=== PATIENT | male | born 1995 | race Caucasian/White ===

== ENCOUNTER 2016-09-18 00:41 | Emergency (ER) | payer BC ==
--- NOTE | 2016-09-18 04:02 | ED ORDER SUMMARY ---
..... Patient: ALANNA CESAR OrderSheet [facility] VisitID: [id number] [address] [place] [address] 21y, M Registration Date/Time: 09/18/2016 ORDER SHEET Weight: 102.0 kg (stated) Allergies: None GENERAL ORDERS: MEDICATION ORDERS: Adacel IM 0.5 mL (NOW) (02:19 09/18/2016 RMarsden R.N. per protocol) (2:21 RMarsden R.N.) Keflex PO 500 mg (NOW) (03:58 09/18/2016 Margarita GONZALEZ) (4:16 RMarsden R.N.) IV FLUIDS: ORDER SHEET NOTES: [Electronically signed by Jessica Phelan R.N. (05:15 09/18/2016)] [Electronically signed by Ar Peres MD (12:48 09/20/2016)] [Electronically locked/signed by Jessica Phelan R.N. (05:15 09/18/2016)]
--- NOTE | 2016-09-18 04:02 | ED NURSING NOTES ---
Clinical Report - Nurses [facility] [address] [place] [address] 09/18/2016 0:45 Patient: ALANNA CESAR TRIAGE Triage time 0050. Acuity: LEVEL 4. Chief Complaint: INJURY TO THE RIGHT GREAT TOE. 00:59. Alert. No acute distress. SEPSIS SCREEN: Sepsis Screen. Negative (no infection suspected/documented). DAIANA COMA SCORE: Daiana Coma Scale: 15- eyes open spontaneously (4); best verbal response- oriented x 4 (5); best motor response- obeys commands (6). --01:39 Jessica Phelan R.N. 00:52 09/18/16. BP: 137/88. HR: 86. RR: 15. O2 saturation: 96%. Temp: 98.5 F. Pain level now: 05/03. --01:39 Jessica Phelan R.N. Weight: 102 kg stated. Height/Length: 72 inches Per Patient. BMI: 30.5. --00:49 Jessica Phelan R.N. Medications None. --04:19 Jessica Phelan R.N. Allergies None. --04:19 Jessica Phelan R.N. History Arrived by private vehicle. Historian: patient. This occurred (around midnight). He sustained a laceration. ( Patient states, "I was carrying the laundry in my room and tripped on the bedpost. It didn't hurt after a minute but I couldn't get it to stop bleeding."). 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 PAST MEDICAL HX: Tetanus status: unknown. Immunizations: up-to-date. SOCIAL HX: Never smoker. Occasional alcohol use. No drug use. FALL RISK ASSESSMENT: Fall risk assessment completed. No fall risk identified. NUTRITIONAL RISK ASSESSMENT: The nutritional risk assessment revealed no deficiencies. FUNCTIONAL ASSESSMENT: Functional assessment: no impairments noted. LEARNING NEEDS ASSESSMENT: The learning needs assessment revealed no barriers. SKIN INTEGRITY ASSESSMENT: Skin integrity risk assessment completed. No skin integrity risk identified. --01:39 Jessica Phelan R.N. Interventions ID band on patient. To treatment room. --01:39 Jessica Phelan R.N. PHYSICAL ASSESSMENT 01:05. Ambulatory to room. GENERAL / NEURO / PSYCH: Oriented X 4. Alert. Appears in no acute distress. EXTREMITIES: Capillary refill is less than 2 seconds in the extremities. Extremity pulses are within normal limits. Extremities exhibit normal ROM. Normal gait. Right big toe: subcutaneous 2.5 cm laceration with bleeding. SKIN: Skin intact. Skin is warm and dry. --01:40 Jessica Phelan R.N. NURSING PROGRESS NOTES 01:41 09/18/16. Two patient identifiers checked. Call light placed in reach. Bed placed in lowest position. Brakes of bed on. Patient ready for evaluation- chart flagged and notification provided. --01:41 Jessica Phelan R.N. 02:16 09/18/2016 Adacel IM 0.5 mL given. (Lot#: [id number], expiration date: 08/01/2018, Animal Nutrition Teacher: sanofi pasteur). Given in the right deltoid. Allergies verified and confirmed 5 rights. Vaccine information statement provided to the patient. --02:21 Jessica Phelan R.N. 02:30 09/18/16. Wound cleansed with sterile water. ( This RN applied sterile gauze and a pressure wrap to patient's room upon assessment. after almost 2 hours, wound is still actively bleeding. wound irrigated and dressing reapplied before MD assessment.). --02:30 Jessica Phelan R.N. 04:06 09/18/2016 Keflex (Cephalexin) PO Capsules 500 mg given. Allergies verified and confirmed 5 rights. --04:16 Jessica Phelan R.N. 04:00. Applied clean dressing consisting of 4x4 gauze, following the application of antibiotic ointment (bacitracin). Secured with tape and tube gauze. --04:17 Jessica Phelan R.N. DISPOSITION / DISCHARGE 04:16 09/18/16. No learning barriers present. Discharge instructions provided and reviewed with the patient. Reviewed warnings. Reviewed medication(s). Treatments reviewed. Reviewed referrals. Activity restrictions reviewed. Patient verbalized understanding. Written instructions provided in Bulgarian. The patient was discharged home. He left the Emergency Department ambulatory and via private vehicle. Patient driving. --04:16 Jessica Phelan R.N. 04:15 09/18/16. BP: 128/74. HR: 81. RR: 16. O2 saturation: 96% on room air. Temp: deferred. Pain level now: 0/10. --04:16 Jessica Phelan R.N. Locked/Released at 09/18/2016 5:15 by Jessica Phelan R.N.
--- NOTE | 2016-09-18 04:02 | ED ORDER SUMMARY ---
..... Patient: ALANNA CESAR OrderSheet [facility] VisitID: [id number] [address] [place] [address] 21y, M Registration Date/Time: 09/18/2016 ORDER SHEET Weight: 102.0 kg (stated) Allergies: None GENERAL ORDERS: MEDICATION ORDERS: Adacel IM 0.5 mL (NOW) (02:19 09/18/2016 RMarsden R.N. per protocol) (2:21 RMarsden R.N.) Keflex PO 500 mg (NOW) (03:58 09/18/2016 Margarita GONZALEZ) (4:16 RMarsden R.N.) IV FLUIDS: ORDER SHEET NOTES: [Electronically signed by Jessica Phelan R.N. (05:15 09/18/2016)] [Electronically signed by Ar Peres MD (12:48 09/20/2016)] [Electronically locked/signed by Jessica Phelan R.N. (05:15 09/18/2016)]
--- NOTE | 2016-09-18 04:02 | ED CLINICAL REPORT ---
Clinical Report - Physicians/Mid Levels [facility] [address] [place] [address] 09/18/2016 0:45 [id number] Time Seen: 02:32. Arrived- By private vehicle. Historian- patient. HISTORY OF PRESENT ILLNESS Chief Complaint: Injury to the right great toe. The injury happened just prior to arrival. Occurred at home. ( Hit a bed frame with his R foot.). The patient sustained a laceration. Patient is experiencing mild pain. No other injury. REVIEW OF SYSTEMS The patient sustained a laceration. No swelling, tingling, numbness or suspected foreign body. PAST HISTORY Tetanus immunization status is unknown. SOCIAL HISTORY Never smoker. ADDITIONAL NOTES The nursing notes have been reviewed. PHYSICAL EXAM Vital Signs: 09/18/2016 04:15 BP: 128/74. HR: 81. RR: 16. O2 saturation: 96%. Pain level now: 0/10. 09/18/2016 00:52 BP: 137/88. HR: 86. RR: 15. O2 saturation: 96%. Temp: 98.5 F. Pain level now: 2/10. Appearance: No acute distress. Head: Head atraumatic. Respiratory: No respiratory distress. Extremities: Right dorsal foot. Right great toe: 2.0 cm laceration of the lateral aspect and proximal phalanx- SEE LACERATION PROCEDURE NOTE #1. Neurovascular intact distally. No abrasion, ecchymosis or deformity. No ankle injury. Extremities otherwise negative. Neuro, Vascular and Tendons: Sensation intact. Motor intact. PROGRESS AND PROCEDURES Laceration Repair: Location: right great toe. Length: 2 cm. Complexity: simple (local anesthesia used and sutured). Neuro/vascular/tendon status: sensory deficit present distally. Local anesthesia provided using 1% lidocaine no epi. Prepped with Betadine. Wound explored, irrigated and examined to the base in bloodless field with normal saline. Closure of skin: interrupted 4-0 and 5-0 nylon. Tetanus immunization given. Disposition: Discharged. Condition: stable. CLINICAL IMPRESSION Single deep laceration to the right great toe. INSTRUCTIONS Return to work (May work. Keep foot clean, Sutures need to come out in 2 weeks). (IMMEDIATE RECHECK FOR INCREASING REDNESS SWELLING OR PAIN.). Warnings: INFECTION: Watch for signs of infection (increasing heat and redness, pus-like drainage, swelling, or increased pain). Return or see your doctor if these signs occur. Prescription Medications: Cephalexin 500 mg: take 1 capsule orally every 6 hours for 5 days. No refill. Follow-up: Follow up with doctor Any Dr or clinic in two weeks for suture removal. Understanding of the discharge instructions verbalized by patient. (Electronically signed by Ar Peres MD 09/20/2016 12:48)
--- NOTE | 2016-09-18 04:02 | ED CLINICAL REPORT ---
Clinical Report - Physicians/Mid Levels [facility] [address] [place] [address] 09/18/2016 0:45 [id number] Time Seen: 02:32. Arrived- By private vehicle. Historian- patient. HISTORY OF PRESENT ILLNESS Chief Complaint: Injury to the right great toe. The injury happened just prior to arrival. Occurred at home. ( Hit a bed frame with his R foot.). The patient sustained a laceration. Patient is experiencing mild pain. No other injury. REVIEW OF SYSTEMS The patient sustained a laceration. No swelling, tingling, numbness or suspected foreign body. PAST HISTORY Tetanus immunization status is unknown. SOCIAL HISTORY Never smoker. ADDITIONAL NOTES The nursing notes have been reviewed. PHYSICAL EXAM Vital Signs: 09/18/2016 04:15 BP: 128/74. HR: 81. RR: 16. O2 saturation: 96%. Pain level now: 0/10. 09/18/2016 00:52 BP: 137/88. HR: 86. RR: 15. O2 saturation: 96%. Temp: 98.5 F. Pain level now: 2/10. Appearance: No acute distress. Head: Head atraumatic. Respiratory: No respiratory distress. Extremities: Right dorsal foot. Right great toe: 2.0 cm laceration of the lateral aspect and proximal phalanx- SEE LACERATION PROCEDURE NOTE #1. Neurovascular intact distally. No abrasion, ecchymosis or deformity. No ankle injury. Extremities otherwise negative. Neuro, Vascular and Tendons: Sensation intact. Motor intact. PROGRESS AND PROCEDURES Laceration Repair: Location: right great toe. Length: 2 cm. Complexity: simple (local anesthesia used and sutured). Neuro/vascular/tendon status: sensory deficit present distally. Local anesthesia provided using 1% lidocaine no epi. Prepped with Betadine. Wound explored, irrigated and examined to the base in bloodless field with normal saline. Closure of skin: interrupted 4-0 and 5-0 nylon. Tetanus immunization given. Disposition: Discharged. Condition: stable. CLINICAL IMPRESSION Single deep laceration to the right great toe. INSTRUCTIONS Return to work (May work. Keep foot clean, Sutures need to come out in 2 weeks). (IMMEDIATE RECHECK FOR INCREASING REDNESS SWELLING OR PAIN.). Warnings: INFECTION: Watch for signs of infection (increasing heat and redness, pus-like drainage, swelling, or increased pain). Return or see your doctor if these signs occur. Prescription Medications: Cephalexin 500 mg: take 1 capsule orally every 6 hours for 5 days. No refill. Follow-up: Follow up with doctor Any Dr or clinic in two weeks for suture removal. Understanding of the discharge instructions verbalized by patient. (Electronically signed by Ar Peres MD 09/20/2016 12:48)
--- NOTE | 2016-09-18 04:02 | ED NURSING NOTES ---
Clinical Report - Nurses [facility] [address] [place] [address] 09/18/2016 0:45 Patient: ALANNA CESAR TRIAGE Triage time 0050. Acuity: LEVEL 4. Chief Complaint: INJURY TO THE RIGHT GREAT TOE. 00:59. Alert. No acute distress. SEPSIS SCREEN: Sepsis Screen. Negative (no infection suspected/documented). DAIANA COMA SCORE: Daiana Coma Scale: 15- eyes open spontaneously (4); best verbal response- oriented x 4 (5); best motor response- obeys commands (6). --01:39 Jessica Phelan R.N. 00:52 09/18/16. BP: 137/88. HR: 86. RR: 15. O2 saturation: 96%. Temp: 98.5 F. Pain level now: 05/03. --01:39 Jessica Phelan R.N. Weight: 102 kg stated. Height/Length: 72 inches Per Patient. BMI: 30.5. --00:49 Jessica Phelan R.N. Medications None. --04:19 Jessica Phelan R.N. Allergies None. --04:19 Jessica Phelan R.N. History Arrived by private vehicle. Historian: patient. This occurred (around midnight). He sustained a laceration. ( Patient states, "I was carrying the laundry in my room and tripped on the bedpost. It didn't hurt after a minute but I couldn't get it to stop bleeding."). 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 PAST MEDICAL HX: Tetanus status: unknown. Immunizations: up-to-date. SOCIAL HX: Never smoker. Occasional alcohol use. No drug use. FALL RISK ASSESSMENT: Fall risk assessment completed. No fall risk identified. NUTRITIONAL RISK ASSESSMENT: The nutritional risk assessment revealed no deficiencies. FUNCTIONAL ASSESSMENT: Functional assessment: no impairments noted. LEARNING NEEDS ASSESSMENT: The learning needs assessment revealed no barriers. SKIN INTEGRITY ASSESSMENT: Skin integrity risk assessment completed. No skin integrity risk identified. --01:39 Jessica Phelan R.N. Interventions ID band on patient. To treatment room. --01:39 Jessica Phelan R.N. PHYSICAL ASSESSMENT 01:05. Ambulatory to room. GENERAL / NEURO / PSYCH: Oriented X 4. Alert. Appears in no acute distress. EXTREMITIES: Capillary refill is less than 2 seconds in the extremities. Extremity pulses are within normal limits. Extremities exhibit normal ROM. Normal gait. Right big toe: subcutaneous 2.5 cm laceration with bleeding. SKIN: Skin intact. Skin is warm and dry. --01:40 Jessica Phelan R.N. NURSING PROGRESS NOTES 01:41 09/18/16. Two patient identifiers checked. Call light placed in reach. Bed placed in lowest position. Brakes of bed on. Patient ready for evaluation- chart flagged and notification provided. --01:41 Jessica Phelan R.N. 02:16 09/18/2016 Adacel IM 0.5 mL given. (Lot#: [id number], expiration date: 08/01/2018, Skiver Heel Tap: sanofi pasteur). Given in the right deltoid. Allergies verified and confirmed 5 rights. Vaccine information statement provided to the patient. --02:21 Jessica Phelan R.N. 02:30 09/18/16. Wound cleansed with sterile water. ( This RN applied sterile gauze and a pressure wrap to patient's room upon assessment. after almost 2 hours, wound is still actively bleeding. wound irrigated and dressing reapplied before MD assessment.). --02:30 Jessica Phelan R.N. 04:06 09/18/2016 Keflex (Cephalexin) PO Capsules 500 mg given. Allergies verified and confirmed 5 rights. --04:16 Jessica Phelan R.N. 04:00. Applied clean dressing consisting of 4x4 gauze, following the application of antibiotic ointment (bacitracin). Secured with tape and tube gauze. --04:17 Jesisca Phelan R.N. DISPOSITION / DISCHARGE 04:16 09/18/16. No learning barriers present. Discharge instructions provided and reviewed with the patient. Reviewed warnings. Reviewed medication(s). Treatments reviewed. Reviewed referrals. Activity restrictions reviewed. Patient verbalized understanding. Written instructions provided in Tajik. The patient was discharged home. He left the Emergency Department ambulatory and via private vehicle. Patient driving. --04:16 Jessica Phelan R.N. 04:15 09/18/16. BP: 128/74. HR: 81. RR: 16. O2 saturation: 96% on room air. Temp: deferred. Pain level now: 0/10. --04:16 Jessica Phelan R.N. Locked/Released at 09/18/2016 5:15 by Jessica Phelan R.N.
--- NOTE | 2016-09-20 12:49 | ED MAR SUMMARY ---
..... Medication Administration Record [facility] [address] [place] [address] Patient: ALANNA CESAR Visit ID: [id number] 21y, M Weight: 102.0 kg Height/Length: 72 in BMI: 30.5 ALLERGIES: None Given 02:16 09/18/2016 Jessica Phelan RViktoria Medication Administered: ADACEL [IM], Dose: 0.5 mL IM. Medication Ordered: Adacel IM 0.5 mL (NOW). Given 04:06 09/18/2016 Jessica Phelan, R.N. Medication Administered: KEFLEX [PO] (CEPHALEXIN), Dose: 500 mg Capsules PO. Medication Ordered: Keflex PO 500 mg (NOW).
--- NOTE | 2016-09-20 12:49 | ED DISCHARGE INSTRUCTIONS ---
Patient: ALANNA CESAR General Instructions [facility] VisitID: [id number] [place] [address] 21y, M Registration Date/Time: 09/18/2016 Single deep laceration to the right great toe. INSTRUCTIONS Return to work (May work. Keep foot clean, Sutures need to come out in 2 weeks). (IMMEDIATE RECHECK FOR INCREASING REDNESS SWELLING OR PAIN.). Warnings: INFECTION: Watch for signs of infection (increasing heat and redness, pus-like drainage, swelling, or increased pain). Return or see your doctor if these signs occur. Prescription Medications: Cephalexin 500 mg: take 1 capsule orally every 6 hours for 5 days. No refill. Follow-up: Follow up with doctor Any Dr or clinic in two weeks for suture removal. Understanding of the discharge instructions verbalized by patient. ADDITIONAL INFORMATION Laceration (All Closures) Alaceration is a cut through the skin. This will usually require stitches (sutures) or elana if it is deep. Minor cuts may be treated with a surgical tape closure orskin glue. Home care The following guidelines will help you care for your laceration at home: Extremity, face, or trunk wounds Keep the wound clean and dry. If a bandage was applied and it becomes wet or dirty, replace it. Otherwise, leave it in place for the first 24 hours. If stitches or elana were used, clean the wound daily. After removing the bandage, wash the area with soap and water. Use a wet cotton swab to loosen and remove any blood or crust that forms. The doctor may prescribe an antibiotic cream or ointment to prevent infection. Do not stop taking this medication until you have finished the prescribed course or the doctor tells you to stop. The doctor may also prescribe medications for pain. Follow the doctors instructions for taking these medications. You may remove the bandage to shower as usual after the first 24 hours, but do not soak the area in water (no swimming) until the stitches or elana are removed. If surgical tape was used, keep the area clean and dry. If it becomes wet, blot it dry with a towel. If skin glue was used, do not scratch, rub, or pick at the adhesive film. Do not place tape directly over the film. Do not apply liquid, ointment, or creams to the wound while the film is in place. Do not clean the wound with peroxide and do not apply ointments. Avoid activities that cause heavy sweating until the film has fallen off. Protect the wound from prolonged exposure to sunlight or tanning lamps. You may shower as usual but do not soak the wound in water (no baths or swimming). The film will fall off by itself in 510 days. Scalp wounds During the first two days, you may carefully rinse your hair in the shower to remove blood, glass or dirt particles. After two days, you may shower and shampoo your hair normally. Do not soak your scalp in the tub or go swimming until the stitches or elana have been removed. Talk with your doctor before applying any antibiotic ointment to the wound. Mouth wounds Eat soft foods to reduce pain. If the cut is inside of your mouth, clean by rinsing after each meal and at bedtime with a mixture of equal parts water and hydrogen peroxide (do not swallow!). Or, you can use a cotton swab to directly apply hydrogen peroxide onto the cut. Mouth wounds can be painful when eating. You may use an [id number] local numbing solution for pain relief. If this is not available, you may use any numbing solution for teething babies. You may apply this directly to the sores with a cotton-tip swab or with your finger. Follow-up care Follow up with your health care provider. Most skin wounds heal within ten days. Mouth and facial wounds heal within five days. However, even with proper treatment, a wound infection may sometimes occur. Therefore, you should check the wound daily for signs of infection listed below. Stitches should be removed from the face within five days; stitches and elana should be removed from other parts of the body within 714 days. If dissolving stitches were used in the mouth, these will fall out or dissolve without the need for removal. If tape closures were used, remove them yourself if they have not fallen off after 7 days. Ifskin glue was used, the film will fall off by itself in 510 days. When to seek medical care Get prompt medical attention if any of these occur: Bleeding not controlled by direct pressure Signs of infection, including increasing pain in the wound, increasing wound redness or swelling, or pus coming from the wound Fever of 100.4F (38C) or higher, or as directed by your health care provider Stitches or elana come apart or fall out or surgical tape falls off before 7 days Wound edges re-open Cephalexin Monohydrate Oral tablet What is this medicine? CEPHALEXIN (sef a ELVA in) is a cephalosporin antibiotic. It is used to treat certain kinds of bacterial infections It will not work for colds, flu, or other viral infections. How should I use this medicine? Take this medicine by mouth with a full glass of water. Follow the directions on the prescription label. This medicine can be taken with or without food. Take your medicine at regular intervals. Do not take your medicine more often than directed. Take all of your medicine as directed even if you think you are better. Do not skip doses or stop your medicine early. Talk to your lens matcher regarding the use of this medicine in children. While this drug may be prescribed for selected conditions, precautions do apply. What side effects may I notice from receiving this medicine? Side effects that you should report to your doctor or health reservoir caretaker as soon as possible: allergic reactions like skin rash, itching or hives, swelling of the face, lips, or tongue breathing problems pain or trouble passing urine redness, blistering, peeling or loosening of the skin, including inside the mouth severe or watery diarrhea unusually weak or tired yellowing of the eyes, skin Side effects that usually do not require medical attention (report to your doctor or health reservoir caretaker if they continue or are bothersome): gas or heartburn genital or anal irritation headache joint or muscle pain nausea, vomiting What may interact with this medicine? probenecid some other antibiotics What if I miss a dose? If you miss a dose, take it as soon as you can. If it is almost time for your next dose, take only that dose. Do not take double or extra doses. There should be at least 4 to 6 hours between doses. Where should I keep my medicine? Keep out of the reach of children. Store at room temperature between 59 and 86 degrees F (15 and 30 degrees C). Throw away any unused medicine after the expiration date. What should I tell my health care provider before I take this medicine? They need to know if you have any of these conditions: kidney disease stomach or intestine problems, especially colitis an unusual or allergic reaction to cephalexin, other cephalosporins, penicillins, other antibiotics, medicines, foods, dyes or preservatives or trying to get breast-feeding What should I watch for while using this medicine? Tell your doctor or health reservoir caretaker if your symptoms do not begin to improve in a few days. Do not treat diarrhea with over the counter products. Contact your doctor if you have diarrhea that lasts more than 2 days or if it is severe and watery. If you have diabetes, you may get a false-positive result for sugar in your urine. Check with your doctor or health reservoir caretaker. You have been given the following additional information: Laceration, All Cephalexin Monohydrate Oral tablet Return to work (May work. Keep foot clean, Sutures need to come out in 2 weeks). (Electronically signed by Ar Peres MD 09/20/2016 12:48)
--- NOTE | 2016-09-20 12:49 | ED MED RECONCILIATION SUMMARY ---
Patient: ALANNA CESAR Medication Reconciliation Report [facility] VisitID: [id number] [address] [place] [address] 21y, M Registration Date/Time: 09/18/2016 Weight: 102.0 kg Height/Length: 72 in. BMI: 30.5 ALLERGIES: None The patient's Home Medications are listed below: NONE. The source(s) of the original Home Medication information: Not obtained. The following Medications were given to the patient in the Emergency Department: Adacel [IM] IM 0.5 mL, administered: 09/18/2016 2:16:00 AM Keflex [PO] PO 500 mg, administered: 09/18/2016 4:06:00 AM The following Medications were prescribed to the patient: Cephalexin 500 mg: take 1 capsule orally every 6 hours for 5 days. No refill. -- Ar Peres MD
--- NOTE | 2016-09-20 12:49 | ED DISCHARGE INSTRUCTIONS ---
Patient: ALANNA CESAR General Instructions [facility] VisitID: [id number] [place] [address] 21y, M Registration Date/Time: 09/18/2016 Single deep laceration to the right great toe. INSTRUCTIONS Return to work ([employer] work. Keep foot clean, Sutures need to come out in 2 weeks). (IMMEDIATE RECHECK FOR INCREASING REDNESS SWELLING OR PAIN.). Warnings: INFECTION: Watch for signs of infection (increasing heat and redness, pus-like drainage, swelling, or increased pain). Return or see your doctor if these signs occur. Prescription Medications: Cephalexin 500 mg: take 1 capsule orally every 6 hours for 5 days. No refill. Follow-up: Follow up with doctor Any Dr or clinic in two weeks for suture removal. Understanding of the discharge instructions verbalized by patient. ADDITIONAL INFORMATION Laceration (All Closures) Alaceration is a cut through the skin. This will usually require stitches (sutures) or elana if it is deep. Minor cuts may be treated with a surgical tape closure orskin glue. Home care The following guidelines will help you care for your laceration at home: Extremity, face, or trunk wounds Keep the wound clean and dry. If a bandage was applied and it becomes wet or dirty, replace it. Otherwise, leave it in place for the first 24 hours. If stitches or elana were used, clean the wound daily. After removing the bandage, wash the area with soap and water. Use a wet cotton swab to loosen and remove any blood or crust that forms. The doctor may prescribe an antibiotic cream or ointment to prevent infection. Do not stop taking this medication until you have finished the prescribed course or the doctor tells you to stop. The doctor may also prescribe medications for pain. Follow the doctors instructions for taking these medications. You may remove the bandage to shower as usual after the first 24 hours, but do not soak the area in water (no swimming) until the stitches or elana are removed. If surgical tape was used, keep the area clean and dry. If it becomes wet, blot it dry with a towel. If skin glue was used, do not scratch, rub, or pick at the adhesive film. Do not place tape directly over the film. Do not apply liquid, ointment, or creams to the wound while the film is in place. Do not clean the wound with peroxide and do not apply ointments. Avoid activities that cause heavy sweating until the film has fallen off. Protect the wound from prolonged exposure to sunlight or tanning lamps. You may shower as usual but do not soak the wound in water (no baths or swimming). The film will fall off by itself in 510 days. Scalp wounds During the first two days, you may carefully rinse your hair in the shower to remove blood, glass or dirt particles. After two days, you may shower and shampoo your hair normally. Do not soak your scalp in the tub or go swimming until the stitches or elana have been removed. Talk with your doctor before applying any antibiotic ointment to the wound. Mouth wounds Eat soft foods to reduce pain. If the cut is inside of your mouth, clean by rinsing after each meal and at bedtime with a mixture of equal parts water and hydrogen peroxide (do not swallow!). Or, you can use a cotton swab to directly apply hydrogen peroxide onto the cut. Mouth wounds can be painful when eating. You may use an [id number] local numbing solution for pain relief. If this is not available, you may use any numbing solution for teething babies. You may apply this directly to the sores with a cotton-tip swab or with your finger. Follow-up care Follow up with your health care provider. Most skin wounds heal within ten days. Mouth and facial wounds heal within five days. However, even with proper treatment, a wound infection may sometimes occur. Therefore, you should check the wound daily for signs of infection listed below. Stitches should be removed from the face within five days; stitches and elana should be removed from other parts of the body within 714 days. If dissolving stitches were used in the mouth, these will fall out or dissolve without the need for removal. If tape closures were used, remove them yourself if they have not fallen off after 7 days. Ifskin glue was used, the film will fall off by itself in 510 days. When to seek medical care Get prompt medical attention if any of these occur: Bleeding not controlled by direct pressure Signs of infection, including increasing pain in the wound, increasing wound redness or swelling, or pus coming from the wound Fever of 100.4F (38C) or higher, or as directed by your health care provider Stitches or elana come apart or fall out or surgical tape falls off before 7 days Wound edges re-open Cephalexin Monohydrate Oral tablet What is this medicine? CEPHALEXIN (sef a ELVA in) is a cephalosporin antibiotic. It is used to treat certain kinds of bacterial infections It will not work for colds, flu, or other viral infections. How should I use this medicine? Take this medicine by mouth with a full glass of water. Follow the directions on the prescription label. This medicine can be taken with or without food. Take your medicine at regular intervals. Do not take your medicine more often than directed. Take all of your medicine as directed even if you think you are better. Do not skip doses or stop your medicine early. Talk to your blueprint processor regarding the use of this medicine in children. While this drug may be prescribed for selected conditions, precautions do apply. What side effects may I notice from receiving this medicine? Side effects that you should report to your doctor or health patient centered care specialist as soon as possible: allergic reactions like skin rash, itching or hives, swelling of the face, lips, or tongue breathing problems pain or trouble passing urine redness, blistering, peeling or loosening of the skin, including inside the mouth severe or watery diarrhea unusually weak or tired yellowing of the eyes, skin Side effects that usually do not require medical attention (report to your doctor or health patient centered care specialist if they continue or are bothersome): gas or heartburn genital or anal irritation headache joint or muscle pain nausea, vomiting What may interact with this medicine? probenecid some other antibiotics What if I miss a dose? If you miss a dose, take it as soon as you can. If it is almost time for your next dose, take only that dose. Do not take double or extra doses. There should be at least 4 to 6 hours between doses. Where should I keep my medicine? Keep out of the reach of children. Store at room temperature between 59 and 86 degrees F (15 and 30 degrees C). Throw away any unused medicine after the expiration date. What should I tell my health care provider before I take this medicine? They need to know if you have any of these conditions: kidney disease stomach or intestine problems, especially colitis an unusual or allergic reaction to cephalexin, other cephalosporins, penicillins, other antibiotics, medicines, foods, dyes or preservatives or trying to get breast-feeding What should I watch for while using this medicine? Tell your doctor or health patient centered care specialist if your symptoms do not begin to improve in a few days. Do not treat diarrhea with over the counter products. Contact your doctor if you have diarrhea that lasts more than 2 days or if it is severe and watery. If you have diabetes, you may get a false-positive result for sugar in your urine. Check with your doctor or health patient centered care specialist. You have been given the following additional information: Laceration, All Cephalexin Monohydrate Oral tablet Return to work (May work. Keep foot clean, Sutures need to come out in 2 weeks). (Electronically signed by Ar Peres MD 09/20/2016 12:48)
--- NOTE | 2016-09-20 12:49 | ED MAR SUMMARY ---
..... Medication Administration Record [facility] [address] [place] [address] Patient: ALANNA CSEAR Visit ID: [id number] 21y, M Weight: 102.0 kg Height/Length: 72 in BMI: 30.5 ALLERGIES: None Given 02:16 09/18/2016 Jessica Phelan RViktoria Medication Administered: ADACEL [IM], Dose: 0.5 mL IM. Medication Ordered: Adacel IM 0.5 mL (NOW). Given 04:06 09/18/2016 Jessica Phelan, R.N. Medication Administered: KEFLEX [PO] (CEPHALEXIN), Dose: 500 mg Capsules PO. Medication Ordered: Keflex PO 500 mg (NOW).
--- NOTE | 2016-09-20 12:49 | ED MED RECONCILIATION SUMMARY ---
Patient: ALANNA CESAR Medication Reconciliation Report [facility] VisitID: [id number] [address] [place] [address] 21y, M Registration Date/Time: 09/18/2016 Weight: 102.0 kg Height/Length: 72 in. BMI: 30.5 ALLERGIES: None The patient's Home Medications are listed below: NONE. The source(s) of the original Home Medication information: Not obtained. The following Medications were given to the patient in the Emergency Department: Adacel [IM] IM 0.5 mL, administered: 09/18/2016 2:16:00 AM Keflex [PO] PO 500 mg, administered: 09/18/2016 4:06:00 AM The following Medications were prescribed to the patient: Cephalexin 500 mg: take 1 capsule orally every 6 hours for 5 days. No refill. -- Ar Peres MD
== END 2016-09-18 04:16 | disposition home or self-care (01) ==
LOC: ED SRH 00:41
DX: S91.111A Laceration without foreign body of right great toe without damage to nail, initial encounter (principal); W22.8XXA Striking against or struck by other objects, initial encounter; Y92.009 Unspecified place in unspecified non-institutional (private) residence as the place of occurrence of the external cause; Z23 Encounter for immunization